=== PATIENT | female | born 1965 | race Caucasian/White ===

== ENCOUNTER → 2016-08-09 | Day surgery (SDC) | payer OTHER | END | disposition home or self-care (01) | LOC: SDC 06:45 | DX: N72 Inflammatory disease of cervix uteri (principal); N87.0 Mild cervical dysplasia; M19.90 Unspecified osteoarthritis, unspecified site; E11.9 Type 2 diabetes mellitus without complications; G43.909 Migraine, unspecified, not intractable, without status migrainosus; R01.1 Cardiac murmur, unspecified; Z79.899 Other long term (current) drug therapy; Z87.19 Personal history of other diseases of the digestive system | CPT/HCPCS: J1885; J2704; J2765 ==